=== PATIENT | male | born 1990 | race Caucasian/White ===

== ENCOUNTER 2020-10-17 08:15 | Outpatient (REF) | payer OTHER, SELFPAY ==
[2020-10-17 08:35] LABS: COVID-19 Test Negative (Negative)
== END 2020-10-17 08:16 | disposition home or self-care (01) ==
LOC: HO.LAB 08:15
PROVIDERS: Visit Provider Internal Medicine
DX: Z20.822 Contact with and (suspected) exposure to COVID-19 (principal)
CPT/HCPCS: 36415; 87635; C9803

== ENCOUNTER 2021-03-24 12:22 | Outpatient (REF) | payer OTHER, SELFPAY ==
[2021-03-24 12:55] LABS: COVID-19 Test Negative (Negative)
== END 2021-03-24 12:23 | disposition home or self-care (01) ==
LOC: HO.LAB 12:22
PROVIDERS: Visit Provider Internal Medicine
DX: Z20.822 Contact with and (suspected) exposure to COVID-19 (principal)
CPT/HCPCS: 36415; 87635; C9803

== ENCOUNTER 2021-03-27 12:10 | Outpatient (REF) | payer OTHER, SELFPAY ==
[2021-03-27 13:27] LABS: COVID-19 Test Negative (Negative)
== END 2021-03-27 12:11 | disposition home or self-care (01) ==
LOC: HO.LAB 12:10
PROVIDERS: Visit Provider Internal Medicine
DX: Z20.822 Contact with and (suspected) exposure to COVID-19 (principal)
CPT/HCPCS: 36415; 87635; C9803